=== PATIENT | male | born 1975 | race African-American/Black ===

== ENCOUNTER 2018-03-07 16:27 | Emergency (ER) | payer SELFPAY ==
[~2018-03-07] VITALS: Ht 188 cm; Wt 86.2 kg
[2018-03-07 16:53] VITALS: BP 111/60
== END 2018-03-07 17:40 | disposition home or self-care (01) ==
LOC: ER 16:32
DX: Z04.1 Encounter for examination and observation following transport accident (principal)
CPT/HCPCS: 99282; A4606; Z7610